=== PATIENT | female | born 1995 | race Caucasian/White ===

== ENCOUNTER 2017-02-04 16:57 | Emergency (ER) | payer MEDICAID ==
[~2017-02-04] VITALS: Ht 167.6 cm; Wt 95.8 kg
[2017-02-04 17:29] VITALS: Ht 167.6 cm; Wt 95.8 kg
[2017-02-04] MEDS ORDERED: morphine 4 MG/ML VIAL IV STA (19:15)
[2017-02-04] MEDS ORDERED: ONDANSETRON 4 MG INJ IV STA (19:15)
[2017-02-04] MEDS ORDERED: SOD CHLORIDE 0.9% 1,000 ML IV STA (19:15)
[2017-02-04 19:52] LABS: ADD UMIC YES; UR ASCORBIC ACID NEGATIVE (NEGATIVE); UR BACTERIA FEW /HPF (NONE SEEN); UR BILIRUBIN (Dip) NEGATIVE (NEGATIVE); UR BLOOD (Dip) NEGATIVE (NEGATIVE); UR CLARITY SLIGHTLY CLOUDY (CLEAR); UR COLOR AMBER (YELLOW); UR GLUCOSE (Dip) NEGATIVE (NEGATIVE); UR KETONES (Dip) TRACE mg/dL (NEGATIVE); UR LEUKOCYTE ESTERASE (Dip) 2+ Leu/ul (NEGATIVE); UR MUCUS FEW /HPF (NONE SEEN); UR NITRITE (Dip) NEGATIVE (NEGATIVE); UR RBC 1 /HPF (0-5); UR SPECIFIC GRAVITY (Dip) 1.029 (1.003-1.030); UR SQUAMOUS EPITHELIAL CELL FEW /HPF (FEW); UR TOTAL PROTEIN (Dip) 1+ mg/dl (NEGATIVE); UR UROBILINOGEN (Dip) 2+ mg/dL (NEGATIVE)
[2017-02-04] MEDS ORDERED: METOCLOPRAMIDE 10 MG TAB PO ONE (20:00)
[2017-02-04] MEDS ORDERED: ACETAMINOPHEN 325 MG TAB PO ONE (20:00)
--- NOTE | 2017-02-04 21:25 | RADRPT ---
PROCEDURE: US OB. CLINICAL INDICATION: Abdominal pain, missed menstrual since August, clinical estimate gestational a ge 24 weeks 0 days with estimated date of delivery 05/27/2017 TECHNIQUE: Multiple sonographic images of the pelvis were obtained. The images were reviewed on a PACS workstation. COMPARISON: No prior studies are available for comparison. FINDINGS: There is a single live intrauterine gestation. Cardiac activity is present with 148 beats per minut e. There is a breech position. Measurements were made in order to determine age. The results are as follows: BPD =6.17 cm, 25 weeks 0 days HC =22.62 cm, 24 weeks 5 days AC =21.35 cm, 25 weeks 6 days FL =4.52 cm, 25 weeks 0 days. Estimated gestational age of approximately 25 weeks 1 day. The estimated date of delivery is 05/19/2017. The EFW = 801.36 g, 1 pound 12 ounces, 93.9%. The placenta is anterior and grade 1. There is no evidence for an abruption. There is a normal amount of amniotic fluid with maximum vertical pocket of 5.8 cm. There are no adnexal masses seen. IMPRESSION: Single live intrauterine gestation of approximately 25 weeks 1 day based on ultrasound measurements. The estimated date of delivery is 05/19/2017 . RPTAT: HJES .Hugh Robles MD, Date Time Electronically viewed and signed by .Hugh Robles MD, on 02/04/2017 21:24 .S/
[2017-02-04] MEDS ORDERED: ACET500C5 PO (21:34)
[2017-02-04] MEDS ORDERED: CEPH-443 PO (21:34)
--- NOTE | 2017-02-05 01:06 | ERD ---
ER Documentation Chief Complaint Chief Complaint pelvic pain x1wk, no period for 6mths, sent by pmd HPI 22-year-old female patient with no significant past medical history presents to the ED complaining of abdominal pain that started intermittently for 1 week. Patient has not had her period since August 2016. Reports that she had one episode of nonbilious nonbloody vomiting. Reports that the abdominal pain is worse in the right and left lower quadrant. Denies any vaginal bleeding, vaginal discharge, dysuria, urgency, frequency, hematuria. ROS All systems reviewed and are negative except as per history of present illness. Medications Home Meds Active Scripts Cephalexin* (Keflex*) 500 Mg Capsule, 500 MG PO QID for 7 Days, CAP Prov:DAMION NIXON PA-C 02/04/17 Acetaminophen* (Tylophen*) 500 Mg Capsule, 1 CAP PO Q6H Y for PAIN AND OR ELEVATED TEMP, #20 CAP Prov:DAMION NIXON PA-C 02/04/17 Allergies Allergies: Coded Allergies: No Known Allergy (Unverified , 02/04/17) PMhx/Soc Medical and Surgical Hx: pt denies Medical Hx, pt denies Surgical Hx Physical Exam Vitals Vital Signs Date Time Temp Pulse Resp B/P Pulse Ox O2 Delivery O2 Flow Rate FiO2 02/04/17 17:29 99.1 100 22 127/77 99 Physical Exam Const: [id number], well-nourished. In no acute distress. Head: Atraumatic, normocephalic Eyes: Normal Conjunctiva without injection. No purulent discharge. ENT: Normal external ear, nose. Moist oropharynx without tonsillar exudates. Non -erythematous pharynx. Uvula midline. No drooling. No trismus. Neck: No cervical midline tenderness. Full range of motion. No meningismus. No cervical lymphadenopathy. No JVD. Resp: Clear to auscultation bilaterally. No wheezing, rhonchi, rales, or crackles. No accessory muscle use. No retractions. Cardio: Regular rate and rhythm. No murmurs, rubs or gallops. Abd: Soft, right and left lower quadrant tenderness, non distended. Normal bowel sounds. No palpable masses. No rebound tenderness. No guarding. Negative McBurney's point. Negative psoas sign. Negative obturator sign. Skin: No petechiae or rashes Back: No midline tenderness. No CVA tenderness. Ext: No cyanosis, or edema. Neur: Awake and alert. Normal gait. Normal coordination. Psych: Normal Mood and Affect Results 24 hrs Laboratory Tests Test 02/04/17 19:00 Urine Color MARGY Urine Clarity SLIGHTLY CLOUDY Urine pH 6.0 Urine Specific [place] 1.029 Urine Ketones TRACEmg/dL Urine Nitrite NEGATIVEmg/dL Urine Bilirubin NEGATIVEmg/dL Urine Urobilinogen 2+mg/dL Urine Leukocyte Esterase 2+Sofia/ul Urine Microscopic RBC 1/HPF Urine Microscopic WBC 3/HPF Urine Squamous Epithelial Cells FEW/HPF Urine Bacteria FEW/HPF Urine Mucus FEW/HPF Urine Hemoglobin NEGATIVEmg/dL Urine Glucose NEGATIVEmg/dL Urine Total Protein 1+mg/dl Current Medications Medications (Trade) Dose Ordered Sig/Nba Route PRN Reason Start Time Stop Time Status Last Admin Dose Admin Sodium Chloride (NS) 1,000 ml @ 1,000 mls/hr Q1H STAT IV 02/04/17 19:15 02/04/17 20:14 Cancel Morphine Sulfate (morphine) 4 mg ONCE STAT IV 02/04/17 19:15 02/04/17 19:16 Cancel Ondansetron HCl (Zofran Inj) 4 mg ONCE STAT IV 02/04/17 19:15 02/04/17 19:16 Cancel Metoclopramide HCl (Reglan) 10 mg ONCE ONCE PO 02/04/17 20:00 02/04/17 20:01 DC 02/04/17 20:10 Acetaminophen (Tylenol Tab) 650 mg ONCE ONCE PO 02/04/17 20:00 02/04/17 20:01 DC 02/04/17 20:10 Procedures/MDM 22-year-old female patient with no significant past medical history presents to the ED complaining of lower quadrant abdominal pain. Patient is afebrile and nontoxic appearing. Urine was done here in the ED which showed positive . Urinalysis shows 2+ leukocyte esterase. Patient will be treated for urinary tract infection.This case was discussed with my supervising physician, Dr. Hankins who agreed with the management and discharge plan. PROCEDURE: US OB. CLINICAL INDICATION: Abdominal pain, missed menstrual since August, clinical estimate gestational age 24 weeks 0 days with estimated date of delivery 2017 TECHNIQUE: Multiple sonographic images of the pelvis were obtained. The images were reviewed on a PACS workstation. COMPARISON: No prior studies are available for comparison. FINDINGS: There is a single live intrauterine gestation. Cardiac activity is present with 148 beats per minute. There is a breech position. Measurements were made in order to determine age. The results are as follows: BPD = 6.17 cm, 25 weeks 0 days HC = 22.62 cm, 24 weeks 5 days AC = 21.35 cm, 25 weeks 6 days FL = 4.52 cm, 25 weeks 0 days. Estimated gestational age of approximately 25 weeks 1 day. The estimated date of delivery is 05/19/2017. The EFW = 801.36 g, 1 pound 12 ounces, 93.9%. The placenta is anterior and grade 1. There is no evidence for an abruption. There is a normal amount of amniotic fluid with maximum vertical pocket of 5.8 cm. There are no adnexal masses seen. IMPRESSION: Single live intrauterine gestation of approximately 25 weeks 1 day based on ultrasound measurements. The estimated date of delivery is 05/19/2017 . Patient has a single live intrauterine gestation of 25 weeks and 1 day. Patient will be discharged here from the ED to and will be taken upstairs to labor and delivery by an ER drafting technician for further evaluation and treatment and clearance by METEOROLOGICAL OBSERVER since patient is more than 20 weeks . Low suspicion for symptomatic anemia, ectopic , preeclampsia, eclampsia, placenta previa, placenta abruptio, sepsis, PID, appendicitis, ovarian torsion, tubo- ovarian abscess, surgical abdomen, or other emergent conditions. Patient is to return sooner to the ED for any worsening symptoms. Patient's questions were answered. Patient understood and agreed with discharge plan. Departure Diagnosis: Primary Impression: Abdominal pain during Condition: Stable Patient Instructions: Urinary Tract Infections in Women, : Your Second Trimester Changes, Adapting to : Second Trimester Referrals: SHELL PEACE MD (PCP) [facility] YOU HAVE RECEIVED A MEDICAL SCREENING EXAM AND THE RESULTS INDICATE THAT YOU DO NOT HAVE A CONDITION THAT REQUIRES URGENT TREATMENT IN THE EMERGENCY DEPARTMENT. FURTHER EVALUATION AND TREATMENT OF YOUR CONDITION CAN WAIT UNTIL YOU ARE SEEN IN YOUR DOCTORS OFFICE WITHIN THE NEXT 1-2 DAYS. IT IS YOUR RESPONSIBILITY TO MAKE AN APPOINTMENT FOR FOLOW-UP CARE. IF YOU HAVE A PRIMARY DOCTOR --you should call your primary doctor and schedule an appointment IF YOU DO NOT HAVE A PRIMARY DOCTOR YOU CAN CALL OUR PHYSICIAN REFERRAL HOTLINE AT IF YOU CAN NOT AFFORD TO SEE A PHYSICIAN YOU CAN CHOSE FROM THE FOLLOWING [facility] [address] [facility] [address] [facility] [address] [facility] [address] [facility] [address] [facility]. [facility] [address] [facility]. [facility] YOU HAVE RECEIVED A MEDICAL SCREENING EXAM AND THE RESULTS INDICATE THAT YOU DO NOT HAVE A CONDITION THAT REQUIRES URGENT TREATMENT IN THE EMERGENCY DEPARTMENT. FURTHER EVALUATION AND TREATMENT OF YOUR CONDITION CAN WAIT UNTIL YOU ARE SEEN IN YOUR DOCTORS OFFICE WITHIN THE NEXT 1-2 DAYS. IT IS YOUR RESPONSIBILITY TO MAKE AN APPOINTMENT FOR FOL- CARE. IF YOU HAVE A PRIMARY DOCTOR --you should call your primary doctor and schedule and appointment IF YOU DO NOT HAVE A PRIMARY DOCTOR YOU CAN CALL OUR PHYSICIAN REFERRAL HOTLINE AT . IF YOU CAN NOT AFFORD TO SEE A PHYSICIAN YOU CAN CHOSE FROM THE FOLLOWING [facility]: [facility] [address] [place] [address] [facility] [address] [place] [address] [facility] [address] [place] [address] [facility] URGENT CARE/SPECIALTIES METEOROLOGICAL [place]BSERV[place] [address] [facility] [address] [place] [address] OFFICE FAX ELSIE SOLORZANO [address] [place] [address] [address]. MERINO WETUMKA [address] [place], [place] [id number] DR RICH [facility] [address] [facility], [address], [place] [address] DR MOURA, [facility] [address] [facility], [place] [address] [facility] [address] [place] [address] [phone] [facility], [facility] [address] - JENI RODRIGUEZ [address], [place] [address] [address] PAUL, [place] [address] [facility]. [address], [place] [address] [address] MADRIGAL, [facility] [address] [place] [address] [facility] Hours: 8:00 am - 5:00 pm Additional Instructions: You must go upstairs to labor and delivery unit to be seen by METEOROLOGICAL OBSERVER for further evaluation and treatment after being discharged from the ER today. Return to this facility if you are not improving as expected - vaginal bleeding , pain with urination, fever, abdominal pain, nausea, vomiting, etc. DAMION NIXON PA-C Feb 05, 2017 01:06 DAMION NIXON PA-C Feb 05, 2017 01:06
== END 2017-02-04 21:42 | disposition home or self-care (01) ==
LOC: FTE 16:57
DX: O26.892 Other specified pregnancy related conditions, second trimester (principal); R10.31 Right lower quadrant pain; R10.32 Left lower quadrant pain; Z3A.25 25 weeks gestation of pregnancy
CPT/HCPCS: 76805; 81001; Z7502; Z7610; J7030

== ENCOUNTER 2017-02-04 21:55 | Outpatient (CLI) | payer MEDICAID ==
[~2017-02-04] VITALS: Ht 165.1 cm; Wt 96.5 kg
[~2017-02-04 21:55] MED LIST: ACET500C5 PO; CEPH-443 PO
[2017-02-04 22:44] VITALS: BP 112/63; PULSE 74; RESP 18; Ht 165.1 cm; Wt 96.5 kg
[2017-02-05 02:32] LABS: BARBITURATES Negative (NEGATIVE); BENZODIAZEPINES Negative (NEGATIVE); CANNABINOIDS Positive (NEGATIVE); COCAINE Negative (NEGATIVE); OPIATES Negative (NEGATIVE)
--- NOTE | 2017-02-05 03:43 | TRIAGE ---
OB Triage Datetime Report Generated by CPN: 02/05/2017 03:43 Datetime: 02/05/2017 00:06 Nausea/Vomiting: Denies Pain Assessment Pain Scale: 0 Pain Presence: None/Denies Pain Type: N/A Pain Goal: 0 Datetime: 02/05/2017 00:00 Stage of : OB Triage Labor Evaluation Frequency: X0 Monitor Mode: External Resting Tone [place]: Relaxed Datetime: 02/04/2017 23:00 Stage of : OB Triage Labor Evaluation Frequency: x1 Monitor Mode: External Duration (sec)2399: 60 Resting Tone [place]: Relaxed Contraction Comments: irritability noted Comments: u/s off Datetime: 02/04/2017 22:49 Assessment Type: Triage Maternal Assessment Level of Consciousness: Fully Conscious DTR's/Clonus: DTRs 2+; No Clonus Headache: Denies Blurred Vision: No Respiratory Effort: Unlabored; Regular Rhythm; Equal Expansion Breath Sounds, Left: Clear and Equal Breath Sounds, Right: Clear and Equal Nausea/Vomiting: Denies RUQ Epigastric Pain: Denies Lower Extremities Edema: None Degree: None Upper Extremities Edema: None Degree: None Facial Edema: None Fall Risk Assessment History of Falling: (0) No Secondary Diagnosis: (0) No Ambulatory Aid: (0) Bedrest/Nurse Assist IV Therapy: (0) No Gait: (0) Normal/Bedrest/Immobile Mental Status: (0) Oriented to Own Ability Fall Score: 0 Fall Risk Score Definition: No Risk: No action required Comment: PT REFERRED FROM ER. SEE TRIAGE SUMMARY FOR PT'S CHIEF COMPLAINT Pain Assessment Pain Scale: 0 Pain Presence: None/Denies Pain Type: N/A Pain Goal: 0 Datetime: 02/04/2017 22:44 Time of Arrival: 02/05/2017 21:40 EGA: 25.2 Arrived By: Wheelchair Arrived From: Emergency Dept Chief Complaint: , REFERRED FROM ER. PT WAS IN ER FOR PAIN _ N/V, PT UNAWARE SHE IS P REGNANCY TEST WAS DONE IN ER. PT RECEIVED TYLENOL FOR PAIN _ REGLAN FOR N/V IN ER. NO COMPLAINTS OF PAIN OR N/V AT THIS TIME. U/S FROM ER SHOWING GA 25.1 WKS W/ EDC OF 05/19/17. PT UNSURE OF HER LMP Movement: Present Contractions: Denies/Absent Rupture of Membranes: Denies Vaginal Bleeding: None Vaginal Discharge: Denies Recent Sexual Intercouse: Denies Abdominal Trauma: Not Applicable Patient Complaints: None Time Provider Notified: 02/04/2017 23:51 Provider Notified: HADADIAN Initial Plan: EFM, VITALS, ENDORSE CARE TO LABORIST Datetime: 02/04/2017 22:13 Stage of : OB Triage Temperature Route: Oral Monitor Mode: External (Annotations: placed) Heart Rate Monitor Mode: External US (Annotations: audible fht's 165 bpm,unable to trace fetus due to pt is [place] and ga is 25 weeks. pt acknowledge fht's.)
--- NOTE | 2017-02-05 07:53 | PN ---
Triage Information Date/Time Reason for visit: Nausea and vomiting Weeks of Gestation 25 1/7 /Para G1 Diabetes: none Hypertention: none Additional information Late Entry Note: 22 year-old G1 presnts to ER with a chief complaint of nausea and vomiting. US performed which revealed 25 1/7 wks of gestational, she was not aware is . She received IVF and zofran, diagnosed with UTI. Keflex given. Currently she is doing well. She then referred to triage for well being. She denies shortness of breath, chest pain, and abdominal pain between contractions, headache, visual changes, vaginal bleeding or LOF. Objective Vital Signs Date Time Temp Pulse Resp B/P Pulse Ox O2 Delivery O2 Flow Rate FiO2 02/04/17 22:44 98.0 74 18 112/63 Room Air Heart Rate: 140's Contractions: None Results/Medications Results 24 hrs Laboratory Tests Test 02/05/17 00:45 Urine Opiates Screen Negative Urine Barbiturates Negative Urine Amphetamines Screen Negative Urine Benzodiazepines Screen Negative Urine Cocaine Screen Negative Urine Cannabinoids Positive Disposition: Discharge Assessment/Plan 22 year-old G1at 25 1/7 with UTI - FHR: No sign of metabolic acidosis- Category I - Continuous EFM, toco - Contractions: None. - Recommend increase fluid intake, cont keflex - +UDS for cannabinoid, sessation discussed in detail - Symptoms and sign of labor, preeclampsia, kick count discussed with patient, she voiced understanding. All of her questions answered. - Patient was discharged home in stable condition with the appropriate discharge instructions provided. I would like patient to have close follow-up with her primary physician or outpatient clinic in 1-2 days or return to the ER for worsening symptoms or any other urgent concerns. NAOMI ORTIZ Feb 05, 2017 07:53
== END 2017-02-05 01:10 | disposition home or self-care (01) ==
LOC: OBT 21:55 → L-D 21:56 → OBT 02-05 01:10
PROVIDERS: ATTEND Obstetrics & Gynecology
DX: O23.42 Unspecified infection of urinary tract in pregnancy, second trimester (principal); O99.322 Drug use complicating pregnancy, second trimester; F12.10 Cannabis abuse, uncomplicated; Z3A.25 25 weeks gestation of pregnancy
CPT/HCPCS: 80307; Z7500; G0463

== ENCOUNTER 2017-03-13 12:33 | Outpatient (CLI) | payer MEDICAID, OTHER ==
[2017-03-13 13:20] LABS: BASOPHILS % 0.1 % (0.0-2.0); EOSINOPHILS # 0.1 10^3/ul (0.0-0.5); EOSINOPHILS % 0.6 % (0.0-7.0); HEMATOCRIT 33.3 % (37.0-47.0); LYMPHOCYTES # 2.7 10^3/ul (0.8-2.9); LYMPHOCYTES % 20.9 % (15.0-51.0); MEAN CORPUSCULAR HEMOGLOBIN 25.5 pg (29.0-33.0); MEAN CORPUSCULAR VOLUME 77.3 fl (82.0-101.0); MEAN PLATELET VOLUME 11.2 fl (7.4-10.4); MONOCYTE # 0.7 10^3/ul (0.3-0.9); MONOCYTES % 5.1 % (0.0-11.0); NEUTROPHIL # 9.5 10^3/ul (1.6-7.5); NEUTROPHILS % 72.7 % (39.0-77.0); PLATELET COUNT 283 10^3/UL (140-415); RED BLOOD COUNT 4.31 10^6/ul (4.20-5.40); RED CELL DISTRIBUTION WIDTH 14.4 % (11.5-14.5)
[2017-03-13 13:25] LABS: ADD UMIC NO; UR ASCORBIC ACID NEGATIVE (NEGATIVE); UR BILIRUBIN (Dip) NEGATIVE (NEGATIVE); UR BLOOD (Dip) NEGATIVE (NEGATIVE); UR CLARITY CLEAR (CLEAR); UR COLOR STRAW (YELLOW); UR GLUCOSE (Dip) NEGATIVE (NEGATIVE); UR KETONES (Dip) NEGATIVE (NEGATIVE); UR LEUKOCYTE ESTERASE (Dip) NEGATIVE Leu/ul (NEGATIVE); UR NITRITE (Dip) NEGATIVE (NEGATIVE); UR SPECIFIC GRAVITY (Dip) 1.002 (1.003-1.030); UR TOTAL PROTEIN (Dip) NEGATIVE (NEGATIVE); UR UROBILINOGEN (Dip) NEGATIVE (NEGATIVE)
--- NOTE | 2017-03-13 14:52 | RADRPT ---
PROCEDURE: US cervix CLINICAL INDICATION: labor TECHNIQUE: Limited OB ultrasound was performed to evaluate the cervix COMPARISON: No prior studies are available for comparison. FINDINGS: There is a single live intrauterine . Normal cardiac activity is identified at a rat e of 146 beats per minute. presentation is cephalic. Placenta is anterior grade II. Cervix measures 3.8 cm in length. There is early dilatation with the cervical canal distended by 4.4 mm with fluid IMPRESSION: Early dilatation of the cervical canal measuring 4.4 mm Cervical length is 3.8 cm RPTAT: HH .Oscar Boyce MD, Date Time Electronically viewed and signed by .Oscar Boyce MD, MD on 03/13/2017 14:52 .W/
--- NOTE | 2017-03-13 18:25 | PN ---
Triage Information Date/Time 03/13/2017 at 1820 p.m. Reason for visit: Vag spotting / bleeding (Complaining of vaginal spotting and uterine contractions 2 days ago which stopped) Weeks of Gestation 30 weeks /Para 1 para 0 Diabetes: none Hypertention: none Objective Heart Rate: 150's Heart Rate Comments Reactive Contractions: None Exam Long and closed reported Results/Medications Result Diagram: 03/13/17 1300 Results 24 hrs Laboratory Tests Test 03/13/17 12:55 03/13/17 13:00 Urine Color STRAW Urine Clarity CLEAR Urine pH 7.0 Urine Specific [place] 1.002 L Urine Ketones NEGATIVE Urine Nitrite NEGATIVE Urine Bilirubin NEGATIVE Urine Urobilinogen NEGATIVE Urine Leukocyte Esterase NEGATIVE Urine Hemoglobin NEGATIVE Urine Glucose NEGATIVE Urine Total Protein NEGATIVE White Blood Count 13.0 H Red Blood Count 4.31 Hemoglobin 11.0 L Hematocrit 33.3 L Mean Corpuscular Volume 77.3 L Mean Corpuscular Hemoglobin 25.5 L Mean Corpuscular Hemoglobin Concent 33.0 Red Cell Distribution Width 14.4 Platelet Count 283 Mean Platelet Volume 11.2 H Neutrophils % 72.7 Lymphocytes % 20.9 Monocytes % 5.1 Eosinophils % 0.6 Basophils % 0.1 Nucleated Red Blood Cells % 0.0 Neutrophils # 9.5 H Lymphocytes # 2.7 Monocytes # 0.7 Eosinophils # 0.1 Basophils # 0.0 Nucleated Red Blood Cells # 0.0 Imaging Results Early dilatation of the cervical canal measuring 4.4 mm Cervical length is 3.8 cm Disposition: Discharge Assessment/Plan Patient with no uterine contractions reported on a monitor Ultrasound result in regards to cervical dilatation and noticed Will place on bed on pelvic rest until delivery Instructions given to patient in regards to persistent uterine contraction to refer back to OB triage MARTA POTTER MD Mar 13, 2017 18:25
[2017-03-13] MEDS ORDERED: TERBUTALINE 1 MG/ML INJ SC ONE (19:00)
--- NOTE | 2017-03-13 23:46 | TRIAGE ---
OB Triage Datetime Report Generated by CPN: 03/13/2017 23:46 Datetime: 03/13/2017 20:08 Pain Presence: None/Denies Pain Relief Measures: Comfort Measures Datetime: 03/13/2017 20:00 Labor Evaluation Frequency: 0 Monitor Mode: External Heart Rate FHR Baseline Rate: 145 Monitor Mode: External US FHR Baseline Changes: No Baseline Change Variability: Moderate 6-25 bpm Accelerations: 15X15 Decelerations: None Category: Category I Datetime: 03/13/2017 19:22 Stage of : OB Triage Assessment Type: Triage Maternal Assessment Level of Consciousness: Fully Conscious DTR's/Clonus: DTRs 2+; No Clonus Headache: Denies Blurred Vision: No Respiratory Effort: Unlabored; Regular Rhythm; Equal Expansion Breath Sounds, Left: Clear and Equal Breath Sounds, Right: Clear and Equal Nausea/Vomiting: Denies RUQ Epigastric Pain: Denies Lower Extremities Edema: None Degree: None Upper Extremities Edema: None Degree: None Facial Edema: None Fall Risk Assessment History of Falling: (0) No Secondary Diagnosis: (0) No Ambulatory Aid: (0) Bedrest/Nurse Assist IV Therapy: (0) No Gait: (0) Normal/Bedrest/Immobile Mental Status: (0) Oriented to Own Ability Fall Score: 0 Fall Risk Score Definition: No Risk: No action required Monitor Mode: External Monitor Mode: External US Pain Assessment Pain Scale: 4 Pain Presence: Intermittent Pain Location: Back Datetime: 03/13/2017 18:28 Stage of : OB Triage Datetime: 03/13/2017 17:58 Labor Evaluation Frequency: 0 Monitor Mode: External Pattern: Normal: <= 5 Contractions in 10 Minutes Resting Tone [place]: Relaxed Heart Rate FHR Baseline Rate: 145 Monitor Mode: External US Variability: Moderate 6-25 bpm Accelerations: 10X10 Decelerations: None Category: Category I Pain Assessment Pain Scale: 0 Pain Presence: None/Denies Pain Type: N/A Pain Goal: 3 Pain Relief Measures: Comfort Measures Datetime: 03/13/2017 17:02 Labor Evaluation Frequency: 0 Monitor Mode: External Pattern: Normal: <= 5 Contractions in 10 Minutes Resting Tone [place]: Relaxed Heart Rate FHR Baseline Rate: 145 Monitor Mode: External US Variability: Moderate 6-25 bpm Accelerations: 10X10 Decelerations: None Category: Category I Pain Assessment Pain Scale: 0 Pain Presence: None/Denies Pain Type: N/A Pain Goal: 3 Pain Relief Measures: Comfort Measures Datetime: 03/13/2017 16:43 Stage of : OB Triage Datetime: 03/13/2017 16:09 Labor Evaluation Frequency: 0 Monitor Mode: External Resting Tone [place]: Relaxed Heart Rate FHR Baseline Rate: 145 Monitor Mode: External US Variability: Moderate 6-25 bpm Decelerations: None Category: Category I Pain Assessment Pain Scale: 3 Pain Presence: Intermittent Pain Type: Cramping Pain Goal: 3 Pain Relief Measures: Comfort Measures Datetime: 03/13/2017 15:06 Labor Evaluation Frequency: 0 Monitor Mode: External Resting Tone [place]: Relaxed Heart Rate FHR Baseline Rate: 145 Monitor Mode: External US Variability: Moderate 6-25 bpm Accelerations: 10X10 Decelerations: None Category: Category I Pain Assessment Pain Scale: 2 Pain Presence: Intermittent Pain Type: Cramping Pain Location: Abdomen Pain Goal: 3 Pain Relief Measures: Comfort Measures Datetime: 03/13/2017 15:02 Stage of : OB Triage Vaginal Exam Dilatation (cms): 0.5 Effacement (%): 30 Station: -3 Exam By: Ion MARY Vaginal Bleeding: None Cervix, Consistency: Soft Cervix, Position: Posterior Presentation 'A': Cephalic Datetime: 03/13/2017 14:01 Labor Evaluation Frequency: 0 Monitor Mode: External Pattern: Normal: <= 5 Contractions in 10 Minutes Resting Tone [place]: Relaxed Heart Rate FHR Baseline Rate: 145 Monitor Mode: External US Variability: Moderate 6-25 bpm Decelerations: None Category: Category I Pain Assessment Pain Scale: 2 Pain Presence: Intermittent Pain Type: Cramping Pain Location: Abdomen Pain Goal: 3 Pain Relief Measures: Comfort Measures Datetime: 03/13/2017 12:44 Stage of : OB Triage Assessment Type: Triage Maternal Assessment Level of Consciousness: Fully Conscious DTR's/Clonus: DTRs 2+; No Clonus Headache: Denies Blurred Vision: No Respiratory Effort: Unlabored; Regular Rhythm; Equal Expansion Breath Sounds, Left: Clear and Equal Breath Sounds, Right: Clear and Equal Nausea/Vomiting: Denies RUQ Epigastric Pain: Denies Facial Edema: None Temperature Route: Axillary Fall Risk Assessment History of Falling: (0) No Secondary Diagnosis: (0) No Ambulatory Aid: (0) Bedrest/Nurse Assist IV Therapy: (0) No Gait: (0) Normal/Bedrest/Immobile Mental Status: (0) Oriented to Own Ability Fall Score: 0 Fall Risk Score Definition: No Risk: No action required Labor Evaluation Frequency: 0 Monitor Mode: External Pattern: Normal: <= 5 Contractions in 10 Minutes Resting Tone [place]: Relaxed Heart Rate FHR Baseline Rate: 145 Monitor Mode: External US Variability: Moderate 6-25 bpm Decelerations: None Pain Assessment Pain Scale: 3 Pain Presence: Intermittent Pain Type: Cramping Pain Location: Abdomen; Back Pain Goal: 3 Pain Relief Measures: Comfort Measures Datetime: 03/13/2017 12:42 Time of Arrival: 03/13/2017 12:30 EGA: 30.3 Arrived By: Ambulatory Arrived From: Dr. Office Chief Complaint: REFERRED FROM DR OFFICE TO R/O LABOR, DENIES BLEEDING OR LEAKING NOW Movement: Present Contractions: Irregular Rupture of Membranes: Denies Vaginal Bleeding: None Vaginal Discharge: Denies Recent Sexual Intercouse: Denies Abdominal Trauma: Not Applicable Patient Complaints: Cramping Time Provider Notified: 03/13/2017 16:43 Provider Notified: BIENVENIDO Initial Plan: MONITOR, U/A, CBC, CL , VE, TERB Datetime: 02/04/2017 22:49 Fall Score: 0 Fall Risk Score Definition: No Risk: No action required Datetime: 02/04/2017 22:44 EGA: 25.2
== END 2017-03-13 20:30 | disposition home or self-care (01) ==
LOC: OBT 12:33 → L-D 12:35 → OBT 20:30
PROVIDERS: ATTEND Obstetrics & Gynecology
DX: O26.853 Spotting complicating pregnancy, third trimester (principal); O62.9 Abnormality of forces of labor, unspecified; Z3A.30 30 weeks gestation of pregnancy
CPT/HCPCS: 76817; 81003; 85025; 96372; J3105; Z7500; G0463

== ENCOUNTER 2017-05-20 09:25 | Inpatient (IN) | END 2017-05-23 14:35 | disposition home or self-care (01) | DRG 775 ==